=== PATIENT | female | born 1980 | race American Indian/Alaskan Native ===

== ENCOUNTER 2017-08-22 19:02 | Emergency (ER) | payer MEDICAID ==
--- NOTE | 2017-08-22 21:45 | XRay Report ---
FINAL REPORT EXAM: XR SPINE LUMBOSACRAL 2-3V HISTORY: S/P fall; lower back pain TECHNIQUE: 3 views of the lumbar spine PRIORS: None. FINDINGS: The lumbar vertebral bodies are normal in height. Vertebral alignment is normal. There is mild loss of disc height and mild endplate osteophyte formation at L5-S1. Otherwise, the disc spaces appear well-preserved. The soft tissues are unremarkable. IMPRESSION: Degenerative disc disease at L5-S1.
[2017-08-22] MEDS ORDERED: TORADOL IM ONE (23:47)
[2017-08-22] MEDS ORDERED: NORCO 7.5/325 PO ONE (23:47)
--- NOTE | 2017-08-22 23:51 | Emergency Department Report ---
ED Back Pain/Injury HPI - General Chief Complaint: Back Pain/Injury Stated Complaint: BACK PAIN Time Seen by Provider: 08/22/17 23:46 Source: patient Limitations: No Limitations - History of Present Illness Initial Comments: 37-year-old obese female comes in after having a fall from a table collapsed while getting her eyebrows done. Patient complains of lower and mid back pain reports pain is 10 out of 10. Patient has no past medical history currently takes no medications and has no known drug allergies. MD Complaint: back injury, fall -: This afternoon Similar Symptoms Previously: No Place: other ([facility]) Severity: severe Severity scale (0 -10): 10 Quality: aching Consistency: constant Improves With: none Worsens With: movement, walking Associated Symptoms: denies: numbness, difficulty urinating, incontinence, fever /chills - Related Data Previous Rx's Medication Instructions Recorded Last Taken Type Ibuprofen [Motrin 800 MG tab] 800 mg PO Q8HR PRN #30 tablet 08/22/17 Unknown Rx methOCARBAMOL [Robaxin TAB] 500 mg PO BID #15 tab 08/22/17 Unknown Rx Allergies Allergy/AdvReac Type Severity Reaction Status Date / Time No Known Allergies Allergy Unverified 08/22/17 19:18 ED Review of Systems ROS: Stated complaint: BACK PAIN Other details as noted in HPI Constitutional: denies: chills, fever Eyes: denies: eye pain, eye discharge, vision change ENT: denies: ear pain, throat pain Respiratory: denies: cough, shortness of breath, wheezing Cardiovascular: denies: chest pain, palpitations Endocrine: no symptoms reported Gastrointestinal: denies: abdominal pain, nausea, diarrhea Genitourinary: denies: urgency, dysuria, discharge Musculoskeletal: back pain Skin: denies: rash, lesions Neurological: denies: headache, weakness, paresthesias Psychiatric: denies: anxiety, depression Hematological/Lymphatic: denies: easy bleeding, easy bruising ED Past Medical Hx - Past Medical History Previous Medical History?: No - Surgical History Past Surgical History?: No - Social History Smoking Status: Former Smoker Substance Use Type: None - Medications Home Medications: Home Medications Medication Instructions Recorded Confirmed Last Taken Type Ibuprofen [Motrin 800 MG tab] 800 mg PO Q8HR PRN #30 tablet 08/22/17 Unknown Rx methOCARBAMOL [Robaxin TAB] 500 mg PO BID #15 tab 08/22/17 Unknown Rx ED Physical Exam - General Limitations: No Limitations General appearance: alert, in no apparent distress - Head Head exam: Present: atraumatic, normocephalic - Eye Eye exam: Present: normal appearance - ENT ENT exam: Present: mucous membranes moist - Neck Neck exam: Present: normal inspection - Respiratory Respiratory exam: Present: normal lung sounds bilaterally. Absent: respiratory distress - Cardiovascular Cardiovascular Exam: Present: regular rate, normal rhythm. Absent: systolic murmur, diastolic murmur, rubs, gallop - GI/Abdominal GI/Abdominal exam: Present: soft, normal bowel sounds - Extremities Exam Extremities exam: Present: normal inspection, full ROM - Back Exam Back exam: Present: normal inspection, full ROM, tenderness, paraspinal tenderness - Neurological Exam Neurological exam: Present: alert, oriented X3 - Psychiatric Psychiatric exam: Present: normal affect, normal mood - Skin Skin exam: Present: warm, dry, intact, normal color. Absent: rash ED Course Vital Signs 08/22/17 19:21 Temperature 98.5 F Pulse Rate 92 H Respiratory 16 Rate Blood Pressure 147/97 O2 Sat by Pulse 95 Oximetry ED Medical Decision Making - Medical Decision Making Patient has been evaluated by this provider fast track. I discussed the patient her x-rays were negative. Chest shows some degenerative joint disease. I did also discuss the patient that I would give her Toradol injection and her [place] to help with her pain. Discussed the patient I will discharge her on ibuprofen as well as a muscle relaxant. Patient verbalized understanding. Critical care attestation.: If time is entered above; I have spent that time in minutes in the direct care of this critically ill patient, excluding procedure time. ED Disposition Clinical Impression: Back pain, lumbosacral Back injury Qualifiers: Encounter type: initial encounter Qualified Code(s): S39.92XA - Unspecified injury of lower back, initial encounter Disposition: TO HOME OR SELFCARE Is pt being admited?: No Does the pt Need Aspirin: No Condition: Stable Instructions: Low Back Strain (ED), Core Strengthening Exercises (GEN) Additional Instructions: Please take pain medication and muscle relaxant as prescribed. If symptoms persist or gets worse please follow up with her primary care provider. Prescriptions: Ibuprofen [Motrin 800 MG tab] 800 mg PO Q8HR PRN #30 tablet PRN Reason: Pain methOCARBAMOL [Robaxin TAB] 500 mg PO BID #15 tab Referrals: GAEL WICK MD [Primary Care Provider] - 3-5 Days [facility] [Provider Group] - 3-5 Days Forms: Work/School Release Form(ED), Accompanied Note
[2017-08-23 06:45] VITALS: BP 143/94
== END 2017-08-23 00:44 | disposition home or self-care (01) ==
LOC: ED 19:02
DX: S39.92XA Unspecified injury of lower back, initial encounter (principal); Z87.891 Personal history of nicotine dependence; W22.8XXA Striking against or struck by other objects, initial encounter; Y93.89 Activity, other specified; Y92.89 Other specified places as the place of occurrence of the external cause; Y99.8 Other external cause status
CPT/HCPCS: 72100; 96372; 99283; J1885